=== PATIENT | male | born 1985 | race Caucasian/White ===

== ENCOUNTER 2024-05-02 00:12 | Emergency (ER) | payer OTHER ==
[~2024-05-02] VITALS: Ht 175.3 cm; Wt 79.4 kg
[2024-05-02 02:55] VITALS: BP 134/68; TEMP 98.1; O2SAT 98
== END 2024-05-02 03:33 | disposition home or self-care (01) ==
LOC: ER 00:14
DX: Z20.2 Contact with and (suspected) exposure to infections with a predominantly sexual mode of transmission (principal)